=== PATIENT | female | born 1960 | race Caucasian/White ===

== ENCOUNTER 2016-06-04 14:47 | Inpatient (IN) | payer OTHER ==
[~2016-06-04] VITALS: Ht 160 cm; Wt 83.1 kg
[~2016-06-04 14:47] MED LIST: ALLEGRA180 MG PO; AVALIDE 300-251 EACH PO; Bystolic PO; CARDIZEM LA360 MG PO; CYMBALTA20 MG PO; Ditropan XL PO; Flonase BOTH NARES; Hyzaar 100-25 PO; KEFLEX500 MG PO; KENALOG; Lasix PO; Micro-K,K-Tab,K-Dur, PO; Mobic PO; PROVIGIL100 MG PO; Procardia XL,Adalat PO; Protonix PO; Provigil PO; SINGULAIR10 MG PO; SYNTHROID; TRIAMCINOLONE 0.1% TP; Ultracet PO; Vicodin,Norco 5/325 PO; WYGESIC,DARV1 TABLET PO; ZESTRIL,PRINIVI20 MG PO; ZOLOFT100 MG PO; Zestril,Prinivil PO; [UNRECOGNIZED DRUG - OTHER] IV; celeBREX PO
[2016-06-04 15:55] LABS: HEMATOCRIT 35.8 % (36.0-46.0); MCH 28.8 PG (29.0-34.0); MCHC 32.7 G/DL (30.0-36.0); MCV 88.2 FL (83-99); MEAN PLAT.VOLUME 10.5 uM^3 (9.5-12.4); PLATELET COUNT 214 K/uL (156-360); RBC DIS.WIDTH-SD 40.5 % (39-53); RED BLOOD COUNT 4.06 M/uL (3.80-5.20)
[2016-06-04 16:05] LABS: CHLORIDE 107 mEq/L (99-109); POTASSIUM 4.2 mEq/L (3.7-5.4); SODIUM 141 mEq/L (136-147)
[2016-06-04 16:07] LABS: GLUCOSE 122 mg/dL (70-99)
[2016-06-04 16:08] LABS: ANION GAP 9 MEQ/L (2-14)
[2016-06-04 16:11] LABS: GFR ESTIMATE (CALCULATED) 45 mL/min/
[2016-06-04 16:12] LABS: UREA NITROGEN (BUN) 20 mg/dL (9-23)
[2016-06-04 16:17] LABS: TROP-I INTERPRETATION NEGATIVE; TROPONIN-I 0.02 ng/mL (0.0-0.30)
[2016-06-04] MEDS ORDERED: LEVOTHYROXINE150 MCG PO (18:36)
[2016-06-04] MEDS ORDERED: KENALOG,ARISTOC80 GM TP (18:37)
[2016-06-04] MEDS ORDERED: CALCITRIOL0.25 MCG PO (18:38)
[2016-06-04] MEDS ORDERED: OXYBUTYNIN CHLO15 MG PO (18:38)
[2016-06-04] MEDS ORDERED: LOSARTAN-HCTZ1 EAC1 PO (18:38)
[2016-06-04] MEDS ORDERED: ERGOCALCIF50000 UNIT PO (18:39)
[2016-06-04] MEDS ORDERED: PANTOPRAZOLE SO40 MG PO (18:39)
[2016-06-04] MEDS ORDERED: DAILY VITE1 EAC1 PO (18:40)
[2016-06-04] MEDS ORDERED: CARVEDILOL12.5 MG PO (18:40)
[2016-06-04] MEDS ORDERED: TRAMADOL HCL50 MG PO (18:40)
[2016-06-04] MEDS ORDERED: SERTRALINE HCL50 MG PO (18:40)
[2016-06-04] MEDS ORDERED: BIOTIN 5000MCG PO (18:41)
[2016-06-04] MEDS ORDERED: XARELTO20 MG PO (18:41)
[2016-06-04] MEDS ORDERED: VITAMIN B-12250 MCG PO (18:42)
[2016-06-04] MEDS ORDERED: GABAPENTIN300 MG PO (18:42)
[2016-06-04 22:14] VITALS: BP 168/94
[2016-06-04 22:21] LABS: TROP-I INTERPRETATION NEGATIVE; TROPONIN-I 0.01 ng/mL (0.0-0.30)
[2016-06-05] VITALS (9 sets, daily range): BP systolic 125–178; BP diastolic 60–98
[2016-06-05 06:04] LABS: TROP-I INTERPRETATION NEGATIVE; TROPONIN-I 0.01 ng/mL (0.0-0.30)
[2016-06-06 04:48] VITALS: BP 138/86
[2016-06-06 07:06] LABS: HEMATOCRIT 36.1 % (36.0-46.0); MCHC 31.9 G/DL (30.0-36.0); MCV 87.8 FL (83-99); MEAN PLAT.VOLUME 10.8 uM^3 (9.5-12.4); PLATELET COUNT 219 K/uL (156-360); RBC DIS.WIDTH-CV 13.4 % (11.8-14.6); RED BLOOD COUNT 4.11 M/uL (3.80-5.20); WHITE BLOOD COUNT 5.5 K/uL (4.1-10.2)
[2016-06-06 07:21] LABS: ALKALINE PHOSPHATASE 60 IU/L (3-129); ANION GAP 9 MEQ/L (2-14); CHLORIDE 98 MEQ/L (99-109); GFR ESTIMATE (CALCULATED) 41 mL/min/; POTASSIUM 3.9 MEQ/L (3.7-5.4); SAMPLE HEMOLYSIS CHECK 0; SAMPLE ICTERIC CHECK 0; SAMPLE LIPEMIA CHECK 0; SODIUM 137 MEQ/L (136-147); TOTAL BILIRUBIN 0.4 MG/DL (0.0-1.0); UREA NITROGEN (BUN) 27 mg/dL (9-23)
[2016-06-06 07:23] LABS: GLUCOSE 84 mg/dL (70-99)
[2016-06-06 08:30] VITALS: BP 137/93
[2016-06-06] MEDS ORDERED: APRESOLINE25 MG PO (12:00)
[2016-06-06] MEDS ORDERED: FUROSEMIDE40 MG PO (12:01)
[2016-06-06] MEDS ORDERED: LOSARTAN POTAS100 MG PO (12:01)
== END 2016-06-06 13:30 | disposition home or self-care (01) | DRG 292 ==
LOC: EME 14:47 → EDOF 19:26 → 4EAST 19:26
PROVIDERS: Internal Medicine
DX: I50.33 Acute on chronic diastolic (congestive) heart failure (principal); I42.0 Dilated cardiomyopathy; J90 Pleural effusion, not elsewhere classified; J98.11 Atelectasis; I45.2 Bifascicular block; I10 Essential (primary) hypertension; I48.0 Paroxysmal atrial fibrillation; G47.33 Obstructive sleep apnea (adult) (pediatric); E78.5 Hyperlipidemia, unspecified; E03.9 Hypothyroidism, unspecified; K21.9 Gastro-esophageal reflux disease without esophagitis; I89.0 Lymphedema, not elsewhere classified; F32.9 Major depressive disorder, single episode, unspecified; G89.29 Other chronic pain; E66.9 Obesity, unspecified; Z91.19 Patient's noncompliance with other medical treatment and regimen; Z79.01 Long term (current) use of anticoagulants; Z90.710 Acquired absence of both cervix and uterus; Z68.32 Body mass index [BMI] 32.0-32.9, adult; Z98.84 Bariatric surgery status; Z87.891 Personal history of nicotine dependence; Z82.49 Family history of ischemic heart disease and other diseases of the circulatory system
CPT/HCPCS: 71020; 80048; 80053; 83880; 84439; 84443; 84484; 85027; 93005; 93306; 99281; 99285; J1940

== ENCOUNTER 2017-06-20 16:59 | Observation (INO) | payer SELFPAY ==
[~2017-06-20] VITALS: Ht 160 cm; Wt 103.0 kg
[~2017-06-20 16:59] MED LIST changes: +APRESOLINE25 MG PO; +BIOTIN 5000MCG PO; +CALCITRIOL0.25 MCG PO; +CARVEDILOL12.5 MG PO; +DAILY VITE1 EAC1 PO; +DITROPAN XL15 MG PO; +ERGOCALCIF50000 UNIT PO; +FLEXERIL10 MG PO; +FUROSEMIDE40 MG PO; +GABAPENTIN300 MG PO; +HYZAAR 100-21 TABLET PO; +KENALOG,ARISTOC80 GM TP; +LEVOTHYROXINE150 MCG PO; +LIDODERM 5% P1 PATCH TD; +LOSARTAN POTAS100 MG PO; +LOSARTAN-HCTZ1 EAC1 PO; +MEDROL DOSEPAK4 MG PO; +OXYBUTYNIN CHLO15 MG PO; +PANTOPRAZOLE SO40 MG PO; +SERTRALINE HCL50 MG PO; +TRAMADOL HCL50 MG PO; +VITAMIN B-123000 MCG SL; +XARELTO20 MG PO
[2017-06-20 17:47] LABS: HEMOGLOBIN 11.6 G/DL (11.9-15.5); MCH 30.1 PG (29.0-34.0); MCHC 33.1 G/DL (30.0-36.0); MCV 90.7 FL (83-99); PLATELET COUNT 230 K/uL (156-360); RBC DIS.WIDTH-CV 15.1 % (11.8-14.6); RBC DIS.WIDTH-SD 50.5 % (39-53); RED BLOOD COUNT 3.86 M/uL (3.80-5.20); WHITE BLOOD COUNT 6.2 K/uL (4.1-10.2)
[2017-06-20 17:56] LABS: CHLORIDE 107 mEq/L (99-109); POTASSIUM 4.3 mEq/L (3.7-5.4); SODIUM 139 mEq/L (136-147)
[2017-06-20 17:58] LABS: GLUCOSE 93 mg/dL (70-99)
[2017-06-20 18:02] LABS: CREATININE 1.2 mg/dL (0.6-1.3); GFR ESTIMATE (CALCULATED) 49 mL/min/
[2017-06-20 18:03] LABS: UREA NITROGEN (BUN) 19 mg/dL (9-23)
[2017-06-20 18:08] LABS: TROP-I INTERPRETATION NEGATIVE; TROPONIN-I 0.03 ng/mL (0.0-0.30)
[2017-06-20 20:38] LABS: INTER. NORMALIZED RATIO 1.2
[2017-06-20 20:40] LABS: D-DIMER ELISA < 150.00 ng/mLDDU (<230)
[2017-06-20 20:41] LABS: PTT 30.3 SEC (25-37)
[2017-06-21 02:55] VITALS: BP 174/92
[2017-06-21 03:10] VITALS: BP 138/90
[2017-06-21 06:42] LABS: TROP-I INTERPRETATION NEGATIVE; TROPONIN-I 0.04 ng/mL (0.0-0.30)
[2017-06-21 06:44] LABS: HDL CHOLESTEROL 65 MG/DL (Desirable>=50); LDL CHOLESTEROL 32 mg/dL (Desirable<100); NON-HDL CHOLESTEROL 51 mg/dL (Desirable<160); TOTAL CHOLESTEROL 116 mg/dL (Desirable<200); TRIGLYCERIDES 95 MG/DL (Normal: <150)
[2017-06-21 09:01] VITALS: BP 165/84
[2017-06-21] MEDS ORDERED: APRESOLINE25 MG PO (11:00)
[2017-06-21] MEDS ORDERED: LIDOCAINE700 MG TP (11:03)
[2017-06-21 11:16] LABS: TROP-I INTERPRETATION NEGATIVE; TROPONIN-I 0.03 ng/mL (0.0-0.30)
[2017-06-21 14:06] VITALS: BP 148/64
[2017-06-21] MEDS ORDERED: COREG25 M1 PO (14:24)
== END 2017-06-21 16:01 | disposition home or self-care (01) ==
LOC: EME 16:59 → EDOF 06-21 00:45 → ENRESERV 06-21 00:47 → 5WEST 06-21 02:41
PROVIDERS: Hospitalist; Physician Assistant; Physician Assistant Medical
DX: R07.9 Chest pain, unspecified (principal); I11.0 Hypertensive heart disease with heart failure; I50.32 Chronic diastolic (congestive) heart failure; I45.10 Unspecified right bundle-branch block; E03.9 Hypothyroidism, unspecified; I89.0 Lymphedema, not elsewhere classified; Z98.84 Bariatric surgery status; E78.5 Hyperlipidemia, unspecified; I48.2 Chronic atrial fibrillation; Z79.01 Long term (current) use of anticoagulants; Z82.49 Family history of ischemic heart disease and other diseases of the circulatory system; E66.01 Morbid (severe) obesity due to excess calories; Z68.41 Body mass index [BMI] 40.0-44.9, adult; G47.33 Obstructive sleep apnea (adult) (pediatric); I42.9 Cardiomyopathy, unspecified; I48.0 Paroxysmal atrial fibrillation; F32.9 Major depressive disorder, single episode, unspecified; L30.9 Dermatitis, unspecified; I87.8 Other specified disorders of veins; Z90.710 Acquired absence of both cervix and uterus; Z87.891 Personal history of nicotine dependence; Z88.8 Allergy status to other drugs, medicaments and biological substances
CPT/HCPCS: 71046; 80048; 80061; 83880; 84484; 85027; 85379; 85610; 85730; 93005; G0378